=== PATIENT | male | born 1980 | race Caucasian/White ===

== ENCOUNTER 2023-12-12 11:00 | Day surgery (SDC) | payer BC, SELFPAY ==
--- NOTE | 2023-12-12 | PATH_ITS ---
[facility] Accession Number: [id number] No. of containers..01 Tissue . 01 Material submitted: . colon - CECAL POLYP . 01 Diagnosis: CECUM, POLYP: Tubular adenoma. MRV 12/17/2023 1232 Local . 01 Electronically signed: . Lizy Carney MD, Pathologist NPI- [id number] . 01 Gross description: . CECAL POLYP: Received in formalin is 1 fragment(s) of dye, soft tissue measuring 0.8 x 0.5 x 0.3 cm submitted entirely in 1 cassette(s) /JANNY 12/13/20232011 Local . 01 Pathologist provided ICD-10: D12.0 . 01 CPT . 281858 Specimen Comment: A courtesy copy of this report has been sent to [phone] Performed at: 01 [facility] [address] [place] [address] [id number] MD Morgan Hernández MD Phone: [phone]
[2023-12-12 11:52] VITALS: BP 132/78; PULSE 86; RESP 18; TEMP 36.1; O2SAT 97
[2023-12-12] MEDS: LACTATED RINGERS 1,000 ML 42 ML IV (12:03)
--- NOTE | 2023-12-12 12:42 | PM.HP.1 ---
History of Present Illness History of Present Illness Date Patient Seen: 12/12/23 Time Patient Seen: 12:42 Chief complaint: Screening Colonoscopy Narrative: Bismark is a 43-year-old man who is here for a screening colonoscopy. He has never had 1 before. No family history of colon cancer. No melena or hematochezia. PFSH Social History Smoking Status: Current some day smoker alcohol intake: current Meds Home Medications and Allergies Home Medications Medication Instructions Recorded Confirmed Type ipratropium bromide 21 mcg (0.03 2 spray intranasal BID PRN allergy 11/26/23 12/12/23 Rx %) nasal spray symptoms #30 mL lisinopril 20 mg tablet 20 mg PO DAILY 11/26/23 12/12/23 History rosuvastatin 20 mg tablet 20 mg PO DAILY 11/26/23 12/12/23 History Allergies Allergy/AdvReac Type Severity Reaction Status Date / Time No Known Drug Allergies Allergy Verified 11/26/23 12:02 Exam Vital Signs (past 8 hours): - 12/12/23 11:52 Temperature 97 F L Pulse Rate 86 Respiratory Rate 18 Blood Pressure 132/78 Pulse Oximetry 97 Oxygen Delivery Method Room Air Oxygen Delivery Method Room Air Const General: No acute distress Resp Effort & Inspection: normal respiratory effort Assessment & Plan Assessment and plan (1) Colon cancer screening: Status: Acute Plan We discussed the risks and benefits of colonoscopy for colon cancer screening and he would like to proceed.
--- NOTE | 2023-12-12 13:04 | PM.OP.COLON ---
Operative Date/Time/Diagnoses Date of procedure: 12/12/23 Time of procedure: 13:05 Pre-op diagnosis: Colon cancer screening Post-op diagnosis: same Procedure & Clinicians Study performed: Colonoscopy Same procedure as scheduled: Yes Surgeon: Sundeep Urias Procedure Notes Procedure in detail: Surgeon: Sundeep Urias MD Anesthesia: Lizy Brown CRNA Procedure: The patient was brought to the endoscopy suite, placed in left lateral decubitus position. The patient was connected to monitoring devices. A time-out was performed. Sedation was administered. Once the patient was adequately sedated, a digital rectal exam was performed and was normal. The scope was then inserted and advanced to the cecum where the appendiceal orifice was identified and photographed. The scope was then slowly withdrawn over greater than 6 minutes. The mucosa was thoroughly inspected. There was a small polyp in the cecum, roughly 3 mm. It was removed with a cold snare. The scope was retroflexed in the rectum. No other abnormalities were seen. The scope was straightened and removed. The patient was awakened and brought to recovery. Scope withdrawal time: 9 minutes Sedation time: 12 minutes EBL: 1 mL Findings: Small polyp in the cecum Post-procedure Disposition: PACU
[2023-12-12 13:08] VITALS: BP 102/57; PULSE 91; RESP 15; TEMP 36.3; O2SAT 97
[2023-12-12 13:13] VITALS: BP 114/66; PULSE 86; RESP 18; O2SAT 97
[2023-12-12 13:18] VITALS: BP 110/64; PULSE 75; RESP 15; O2SAT 99
[2023-12-12 13:23] VITALS: BP 122/77; PULSE 74; RESP 16; TEMP 36.4; O2SAT 99
== END 2023-12-12 13:30 | disposition home or self-care (01) ==
PROVIDERS: PCP Registered Nurse; Referring Provider Surgery; Visit Provider Surgery
PROC: 0DJD8ZZ Inspection of Lower Intestinal Tract, Via Natural or Artificial Opening Endoscopic (ICD-10-PCS; CPT 45378; principal; 2023-12-12 12:30)
DX: Z12.11 Encounter for screening for malignant neoplasm of colon (principal); D12.0 Benign neoplasm of cecum
CPT/HCPCS: 45378; J2704

== ENCOUNTER → 2023-12-13 08:30 | Outpatient (CLI) | payer BC, SELFPAY | PROVIDERS: PCP Registered Nurse; Visit Provider Nurse Practitioner Family | DX: J02.9 Acute pharyngitis, unspecified (principal) | CPT/HCPCS: 87070 ==